=== PATIENT | female | born 1990 | race American Indian/Alaskan Native ===

== ENCOUNTER 2017-11-28 19:27 | Emergency (ER) | payer BC ==
[2017-11-28 19:53] VITALS: O2SAT 98
[2017-11-28 20:08] VITALS: BMI 37.5
--- NOTE | 2017-11-28 20:10 | ED PDOC ---
Arrival/HPI - General Chief Complaint: ENT Problem Time Seen by Provider: 11/28/17 19:29 Historian: Patient - History of Present Illness Narrative History of Present Illness (Text): 11/28/17 20:07 Patient is a 27 yo F with no significant PMH presents to the ED with 5 day history of left sided throat pain and ear pain. Patient states that initially she felt feverish, but OTC medications were able to control her fever. Patient states that her left ear pain feels throbby and feels like there is liquid in her ear. Patient feels like the left side of her throat is swollen and is difficult for her to swallow. Patient denies any recent sick contacts, sinus pain/congestion, post-nasal drip, cough, CP, SOB, n/v/d, abdominal pain, chills , ESTEVES, or dizziness. No PMD Time/Duration: < week Symptom Onset: Gradual Symptom Course: Unchanged Quality: Throbbing Activities at Onset: Rest Past Medical History - Infectious Disease Hx of Infectious Diseases: None - Past Medical History Past Medical History: No Previous - Psychiatric Hx Substance Use: No - Past Surgical History Past Surgical History: No Previous - Anesthesia Hx Anesthesia: No - Suicidal Assessment Feels Threatened In Home Enviroment: No Family/Social History Family/Social History: No Known Family HX Smoking Status: Never Smoked Hx Alcohol Use: No Hx Substance Use: No Hx Substance Use Treatment: No Allergies/Home Meds Allergies/Adverse Reactions: Allergies No Known Allergies Allergy (Verified 11/28/17 20:00) Review of Systems - Physician Review All systems were reviewed & negative as marked: Yes (12 point ROS reviewed and is negative other than what is stated in HPI.) Physical Exam Vital Signs Reviewed: Yes Vital Signs Temp Pulse Resp BP Pulse Ox 11/28/17 19:51 98.2 F 79 20 111/67 98 Temperature: Afebrile Blood Pressure: Normal Pulse: Regular Respiratory Rate: Normal Appearance: Positive for: Non-Toxic Pain Distress: None Mental Status: Positive for: Alert and Oriented X 3 - Systems Exam Head: Present: Atraumatic, Normocephalic Pupils: Present: PERRL Extroacular Muscles: Present: EOMI Conjunctiva: Present: Normal Ears: Present: Erythema (left), TM Bulging (left) Mouth: Present: Moist Mucous Membranes Pharnyx: Present: ERYTHEMA, TONSILS ENLARGED (mild swelling). No: EXUDATE, Peritonsilar Swelling, Uvular Deviation, Muffled/Hoarse Voice, Strider, Soft Palate/Uvular Edema Nose (Internal): Present: Normal Inspection Neck: Present: Normal Range of Motion, Lymphadenopathy (left anterior cervical lymphandenopathy) Respiratory/Chest: Present: Clear to Auscultation. No: Wheezes, Rales, Rhonchi Cardiovascular: Present: Regular Rate and Rhythm, Normal S1, S2. No: Murmurs Abdomen: No: Tenderness, Distention, Rebound, Guarding Upper Extremity: Present: Normal Inspection Lower Extremity: Present: Normal Inspection Neurological: Present: GCS=15, CN II-XII Intact, Speech Normal Skin: Present: Warm, Dry, Normal Color. No: Rashes Psychiatric: Present: Alert, Oriented x 3, Normal Insight, Normal Concentration Medical Decision Making ED Course and Treatment: 11/28/17 20:14 27 yo F presents to ED with left throat and ear pain. Plan: - Centor Criteria: 3 (absent cough, cervical lymphadenopathy, tonsillar swelling ) - Rapid strep test - Reassess and disposition 11/28/17 20:38 Rapid strep negative. Discussed results and diagnosis of otitis media with patient. Advised patient to complete 7 day course of antibiotics and follow up with PMD. - Lab Interpretations Lab Results: Lab Results 11/28/17 20:00: Grp A Beta Strep Ag Negative Disposition/Present on Arrival - Present on Arrival Any Indicators Present on Arrival: No History of DVT/PE: No History of Uncontrolled Diabetes: No Urinary Catheter: No History of Decub. Ulcer: No History Surgical Site Infection Following: None - Disposition Have Diagnosis and Disposition been Completed?: Yes Diagnosis: Otitis media Disposition: HOME/ ROUTINE Disposition Time: 20:39 Patient Plan: Discharge Patient Problems: Current Active Problems Problem Status Onset Otitis media Acute Condition: STABLE Discharge Instructions (ExitCare): Ear Infections (Otitis Media) (DC) Additional Instructions: 1. Complete 7 day course of antibiotics 2. May use [id number] tylenol for fever or ibuprofen for pain and directed on label 3. Recommend establishing primary doctor and following up 4. Return to ED if symptoms worsen LIZZIE ISLAS, thank you for letting us take care of you today. Your provider was Jef Mccord MD and you were treated for THROAT PROBLEM. The emergency medical care you received today was directed at your acute symptoms. If you were prescribed any medication, please fill it and take as directed. It may take several days for your symptoms to resolve. Return to the Emergency Department if your symptoms worsen, do not improve, or if you have any other problems. Please contact your doctor or call one of the physicians/clinics you have been referred to that are listed on the Patient Visit Information form that is included in your discharge packet. Bring any paperwork you were given at discharge with you along with any medications you are taking to your follow up visit. Our treatment cannot replace ongoing medical care by a primary care provider outside of the emergency department. Thank you for allowing the [facility] team to be part of your care today. Prescriptions: Amoxicillin 500 mg PO BID #14 tablet Referrals: PCP,NO [Primary Care Provider] - Follow up with primary Forms: [employer] ([place]ian)
[2017-11-28 20:48] VITALS: BP 115/68; PULSE 77; RESP 18; TEMP 98
== END 2017-11-28 20:46 | disposition home or self-care (01) ==
LOC: ED 19:27
DX: H66.92 Otitis media, unspecified, left ear (principal)